=== PATIENT | female | born 1990 | race Caucasian/White ===

== ENCOUNTER 2017-06-24 00:03 | Outpatient (CLI) | payer BC ==
[~2017-06-24] VITALS: Ht 167.6 cm; Wt 88.6 kg
[~2017-06-24 00:03] MED LIST: AMOXICILLIN 8751 TAB PO; FLEXERIL 1010 MG/TAB PO; MASON NATURAL1200 MG PO; PLAQUENIL 200M200 MG PO; PRENATAL MVI; SINGULAIR 110 MG/TAB PO; SKYLA
[2017-06-24 00:21] VITALS: BP 126/71; PULSE 85; TEMP 98.7
[2017-06-24] MEDS ORDERED: NATURE'S BLE1000 MCG PO (00:28)
[2017-06-24 00:30] VITALS: BP 126/71; PULSE 85; TEMP 98.7
[2017-06-24 01:00] VITALS: BP 113/66; PULSE 82
[2017-06-24 01:24] VITALS: BP 113/68; PULSE 75
== END 2017-06-24 01:40 | disposition home or self-care (01) ==
LOC: LDRO 00:03
DX: O62.9 Abnormality of forces of labor, unspecified (principal); Z3A.39 39 weeks gestation of pregnancy

== ENCOUNTER 2017-07-03 06:54 | Inpatient (IN) | payer BC ==
[~2017-07-03] VITALS: Ht 167.6 cm; Wt 88.6 kg
[~2017-07-03 06:54] MED LIST changes: +NATURE'S BLE1000 MCG PO
[2017-07-08] VITALS (36 sets, daily range): BP systolic 98–155; BP diastolic 53–85; PULSE 65–112; TEMP 97.8–99
[2017-07-08 04:20] LABS: BASO % 0.3 % (0.0-2.0); EOS % 0.1 % (0-4.0); GRAN # 10.4 (1.4-6.5); GRAN % 72.7 % (42.2-75.2); HEMOGLOBIN 15.3 g/dl (12.5-16.0); LYMPH # 2.8 (1.2-3.4); LYMPH % 19.7 % (20.0-51.0); MEAN CELL VOLUME 93 fl (80.0-100.0); MEAN CORPUSCULAR HEMOGLOBIN 33 pg (27.0-31.0); MEAN CORPUSCULAR HGB CONC 36 g/dl (33.0-37.0); MEAN PLATELET VOLUME 9.3 fl (7.4-10.4); MONO # 0.9 (0.1-0.6); MONO % 6.2 % (1.7-9.3); PLATELET COUNT 171 K/mm3 (130-400); RED BLOOD COUNT 4.64 M/mm3 (4.10-5.30); WHITE BLOOD COUNT 14.3 K/mm3 (4.8-10.8)
[2017-07-09 07:05] VITALS: BP 114/62; PULSE 85; TEMP 97.9
[2017-07-09] MEDS ORDERED: IBU600 MG PO (09:13)
[2017-07-09 17:30] VITALS: BP 112/54; PULSE 82; TEMP 98.3
[2017-07-09 20:59] VITALS: BP 106/52; PULSE 78; TEMP 98
[2017-07-10 07:00] VITALS: BP 99/64; PULSE 78; TEMP 98.2
== END 2017-07-10 10:34 | disposition home or self-care (01) | DRG 775 ==
LOC: EDSTATUS 06:54 → LDRO 12:50 → LDR 07-08 03:09 → OB 07-08 03:09 → LDR 07-08 06:57 → OB 07-08 12:15
PROVIDERS: Student in an Organized Health Care Education/Training Program
PROC: 10D07Z6 Extraction of Products of Conception, Vacuum, Via Natural or Artificial Opening (ICD-10-PCS; principal; 2017-07-08)
PROC: 0HQ9XZZ Repair Perineum Skin, External Approach (ICD-10-PCS; 2017-07-08)
DX: O48.0 Post-term pregnancy (principal); O76 Abnormality in fetal heart rate and rhythm complicating labor and delivery; O43.123 Velamentous insertion of umbilical cord, third trimester; O69.81X0 Labor and delivery complicated by cord around neck, without compression, not applicable or unspecified; O70.0 First degree perineal laceration during delivery; Z3A.40 40 weeks gestation of pregnancy; Z37.0 Single live birth
CPT/HCPCS: J2590; J7120

== ENCOUNTER → 2018-11-29 | Outpatient (CLI) | payer BC ==
[~2018-11-29] MED LIST changes: +IBU600 MG PO
== END ==
LOC: MC.RAD 08:30
DX: N63.11 Unspecified lump in the right breast, upper outer quadrant (principal)
CPT/HCPCS: G0279

== ENCOUNTER → 2020-04-27 | Outpatient (CLI) | payer BC | LOC: ZCOL.LAB 15:52 | DX: R52 Pain, unspecified (principal) ==

== ENCOUNTER → 2020-05-02 | Outpatient (CLI) | payer BC | LOC: ZCOL.LAB 16:04 | DX: R52 Pain, unspecified (principal); R53.83 Other fatigue ==

== ENCOUNTER → 2021-03-27 | Outpatient (CLI) | payer BC | LOC: COL.VAS 12:07 | DX: I36.1 Nonrheumatic tricuspid (valve) insufficiency (principal) ==

== ENCOUNTER → 2021-05-29 | Outpatient (CLI) | payer BC | LOC: COL.RAD 14:16 | DX: B94.8 Sequelae of other specified infectious and parasitic diseases (principal); D68.51 Activated protein C resistance | CPT/HCPCS: Q9967 ==

== ENCOUNTER → 2021-09-19 | Outpatient (CLI) | payer BC | LOC: COL.PUL 13:00 | DX: R06.02 Shortness of breath (principal) | CPT/HCPCS: J7674 ==

== ENCOUNTER 2022-05-21 17:28 | Emergency (ER) | payer BC ==
[~2022-05-21] VITALS: Ht 167.6 cm; Wt 61.4 kg
[2022-05-21 18:38] LABS: COLLECTION METHOD CLEAN CATCH
[2022-05-21 18:45] LABS: BASO % 0.3 % (0.0-2.0); GRAN % 89.4 % (42.2-75.2); HEMATOCRIT 43.9 % (37.0-47.0); HEMOGLOBIN 15.3 g/dl (12.5-16.0); LYMPH # 0.5 K/mm3 (1.2-3.4); LYMPH % 6.3 % (20.0-51.0); MEAN CELL VOLUME 95 fl (80.0-100.0); MEAN CORPUSCULAR HEMOGLOBIN 33 pg (27-31); MEAN CORPUSCULAR HGB CONC 35 g/dl (33.0-37.0); MEAN PLATELET VOLUME 8.6 fl (7.4-10.4); MONO # 0.3 K/mm3 (0.1-0.6); MONO % 3.7 % (1.7-9.3); PLATELET COUNT 148 K/mm3 (130-400); REDCELL DISTRIBUTION WIDTH-CV 12.6 % (11.5-14.5)
[2022-05-21 18:52] LABS: PH 7.5 (5.0-8.5); URINE APPEARANCE Cloudy (CLEAR/HAZY); URINE BLOOD 2+ (NEGATIVE); URINE COLOR Yellow (YELLOW); URINE GLUCOSE Negative (NEGATIVE); URINE KETONE 1+ (NEGATIVE); URINE NITRATE Negative (NEGATIVE); URINE PROTEIN(semi-quant) 2+ (NEGATIVE); URINE UROBILINOGEN 0.2 E.U/dL (0.2-1.0)
[2022-05-21 18:55] LABS: SQUAMOUS EPITHELIAL None Seen /hpf (0-10); URINE BACTERIA Rare /hpf (NONE SEEN); URINE RBC 20-50 /hpf (0-2)
[2022-05-21 19:01] LABS: ALBUMIN 4.2 gm/dL (3.5-5.0); BILIRUBIN,TOTAL 0.8 mg/dL (0.2-1.2); CALCIUM 9.6 mg/dL (8.4-10.2); CREATININE, serum 0.92 mg/dL (0.57-1.11); POTASSIUM 4.1 mmol/L (3.5-4.5); TOTAL PROTEIN 7.1 gm/dL (6.2-8.1)
[2022-05-21] MEDS ORDERED: OMNICEF 300MG300 MG PO (20:34)
[2022-05-21] MEDS ORDERED: ZOFRAN ODT4 MG PO (20:35)
[2022-05-21 21:23] VITALS: TEMP 98.6
[2022-05-21 21:25] VITALS: BP 107/55; PULSE 74
== END 2022-05-21 21:26 | disposition home or self-care (01) ==
LOC: COL.ER 17:28
PROVIDERS: Nurse Practitioner Primary Care
DX: U07.1 COVID-19 (principal); N39.0 Urinary tract infection, site not specified; Z88.2 Allergy status to sulfonamides; Z28.310 Unvaccinated for COVID-19
CPT/HCPCS: J0696; J1200; J2405; J7030; Q9967

== ENCOUNTER 2023-09-24 03:33 | Observation (INO) | payer BC ==
[2023-09-24] VITALS (13 sets, daily range): BP systolic 90–123; BP diastolic 51–75; PULSE 59–82; TEMP 97.5–98.5
[~2023-09-24] VITALS: Ht 167.6 cm; Wt 65.9 kg
[~2023-09-24 03:33] MED LIST changes: +OMNICEF 300MG300 MG PO; +ZOFRAN ODT4 MG PO
[2023-09-24 03:59] LABS: BASO # 0.1 K/mm3 (0.0-0.2); BASO % 0.8 % (0.0-2.0); EOS % 0.5 % (0.0-4.0); GRAN % 60.5 % (42.2-75.2); HEMATOCRIT 41.5 % (37.0-47.0); HEMOGLOBIN 14.9 g/dl (12.5-16.0); LYMPH # 2.1 K/mm3 (1.2-3.4); LYMPH % 31.7 % (20.0-51.0); MEAN CELL VOLUME 90 fl (80.0-100.0); MEAN CORPUSCULAR HEMOGLOBIN 33 pg (27-31); MEAN CORPUSCULAR HGB CONC 36 g/dl (33.0-37.0); MEAN PLATELET VOLUME 8.7 fl (7.4-10.4); MONO # 0.4 K/mm3 (0.1-0.6); MONO % 6.3 % (1.7-9.3); PLATELET COUNT 203 K/mm3 (130-400); RED BLOOD COUNT 4.59 M/mm3 (4.10-5.30); REDCELL DISTRIBUTION WIDTH-CV 12.7 % (11.5-14.5)
[2023-09-24 04:19] LABS: BILIRUBIN,TOTAL 0.8 mg/dL (0.2-1.2); CREATININE, serum 0.87 mg/dL (0.57-1.11); POTASSIUM 3.5 mmol/L (3.5-4.5); TOTAL PROTEIN 6.6 gm/dL (6.2-8.1)
[2023-09-24 04:33] LABS: INR 1.1 (0.8-3.0); PROTHROMBIN TIME 11.4 SECONDS (9.7-12.8)
[2023-09-24 04:35] LABS: PARTIAL THROMBOPLASTIN TIME 34.7 SECONDS (26.0-37.0)
[2023-09-24] MEDS ORDERED: SYNTHROID0.075 MG/T (05:56)
[2023-09-24] MEDS ORDERED: CYTOMEL 5MC5 MCG/TAB PO (05:57)
--- NOTE | 2023-09-24 08:20 | NUR ---
Pt up recently from ED. Pt is alert and oriented with mild pain complaints at this time. Pt is independent in the room and is steady on her feet. Pt aware that she is not able to eat or drink anything at this time due to upcoming procedure. Oriented pt to her room, no other needs or questions, call light within reach
--- NOTE | 2023-09-24 09:44 | NUR ---
Initial visit; Patient thanked Desktop Publisher for looking in on her and offering God's blessings. Patient was using telephone. Desktop Publisher cut the visit short and wished her well.
--- NOTE | 2023-09-24 10:10 | NUR ---
supervisor machine workers met with pt to discuss discharge planning. She reports to live with family in [place]. She has a contact listed as Dre [phone]. She states she sees Dr. Last and obtains medications from [facility] with no difficulties. She is independent with ADLS and uses no DME. She does not have a DPOA-HC and declines one at this time. She intends to return home at discharge. Discharge Plan: Home
[2023-09-24 14:38] LABS: HEMATOCRIT 37.2 % (37.0-47.0); HEMOGLOBIN 13.6 g/dl (12.5-16.0)
--- NOTE | 2023-09-24 16:20 | NUR ---
Pt off the floor for EGD. Verbal report given to LUTHER Claire
--- NOTE | 2023-09-24 17:00 | NUR ---
Pt recently back from EGD. Pt is alert and oriented, no pain complaints. Pt is steady on her feet as she walked back to her bed. Call light within reach
--- NOTE | 2023-09-24 17:20 | NUR ---
Assisted pt to the restroom, voided without difficulty. Called Dr Jiang, pt now on clear liquid diet. Gave her ice water, jello and ordered some broth. No other needs, VSS
[2023-09-25] VITALS (12 sets, daily range): BP systolic 90–112; BP diastolic 62–71; PULSE 60–64; TEMP 97.5–98.2
--- NOTE | 2023-09-25 05:40 | NUR ---
NURSING SHIFT ASSESSMENT COMPLETED. THE PATIENT WAS ALERT AND ORIENTED. NO NAUSEA OR VOMITING NOTED AND THE PATIENT TOLERATED HER FULL LIQUID DINNER DIET. THE PATIENT DENIED PAIN. THE PLAN OF CARE AND EVENING MEDICATIONS REVIEWED. THE PATIENT IS UP INDEPENDENTLY IN THE ROOM WITH A STEADY GAIT. NO NEEDS AT THIS TIME.
[2023-09-25 08:21] LABS: HEMATOCRIT 37.8 % (37.0-47.0); HEMOGLOBIN 13.5 g/dl (12.5-16.0); MEAN CELL VOLUME 90 fl (80.0-100.0); MEAN CORPUSCULAR HEMOGLOBIN 32 pg (27-31); MEAN CORPUSCULAR HGB CONC 36 g/dl (33.0-37.0); MEAN PLATELET VOLUME 8.7 fl (7.4-10.4); PLATELET COUNT 142 K/mm3 (130-400); RED BLOOD COUNT 4.19 M/mm3 (4.10-5.30); REDCELL DISTRIBUTION WIDTH-CV 12.8 % (11.5-14.5)
--- NOTE | 2023-09-25 08:27 | NUR ---
Pt doing well this morning. She has some complaints of pain, but reports that she thinks it is more the way she slept. Pt getting around independently with no issues. Pt is looking at menu to order her breakfast. No needs, will continue to monitor
[2023-09-25] MEDS ORDERED: ZOFRAN 4MG T4 MG/TAB PO (08:33)
[2023-09-25 08:40] LABS: ALBUMIN 3.4 gm/dL (3.5-5.0); BILIRUBIN,TOTAL 0.6 mg/dL (0.2-1.2); CALCIUM 8.8 mg/dL (8.4-10.2); CREATININE, serum 0.79 mg/dL (0.57-1.11); POTASSIUM 4.3 mmol/L (3.5-4.5); TOTAL PROTEIN 5.7 gm/dL (6.2-8.1)
[2023-09-25] MEDS ORDERED: CARAFATE 1GM1 G PO (10:04)
[2023-09-25] MEDS ORDERED: PROTONIX 40MG T40 MG PO (10:04)
--- NOTE | 2023-09-25 13:00 | NUR ---
Pt has tolerated the general diet, no complaints up to this point. No needs, will continue to monitor
--- NOTE | 2023-09-25 13:38 | NUR ---
Notified Dr Kirkland that pt reports doing well. Discharge orders were put in. Went in to discuss discharge with pt who then stated that the chest pressure that she has been having off and on since she was admitted is more constant now. I did call MAGDA Ye and notified her of this
--- NOTE | 2023-09-25 20:37 | NUR ---
Patient assessed at this time, see shift assessment, reports a little bit of nausea but denies the need for zofran at this time, IV to left AC infusing well, denies further needs, call light and personal items within reach, will continue to monitor.
--- NOTE | 2023-09-25 23:30 | NUR ---
Patient eating and drinking fine, informed Zhenthe MAGDA and received an order to DC the IV fluids.
[2023-09-26] VITALS (7 sets, daily range): BP systolic 99–109; BP diastolic 62–66; PULSE 61–72; TEMP 97.6–98.2
== END 2023-09-26 14:02 | disposition home or self-care (01) ==
LOC: COL.ER 03:33 → SURG 05:59
PROVIDERS: Emergency Medicine; Physician Assistant; ADMIT Internal Medicine
DX: K29.00 Acute gastritis without bleeding (principal); K29.50 Unspecified chronic gastritis without bleeding; K92.0 Hematemesis; K82.8 Other specified diseases of gallbladder; M06.9 Rheumatoid arthritis, unspecified; E06.3 Autoimmune thyroiditis; E87.20 Acidosis, unspecified; Z79.899 Other long term (current) drug therapy; Z79.890 Hormone replacement therapy
CPT/HCPCS: C9113; G0378; J2405; J2704; J2765; J3010; J3480; J7030; Q9967